=== PATIENT | female | born 1995 | race Caucasian/White ===

== ENCOUNTER 2020-05-01 18:38 | Emergency (ER) | payer OTHER ==
[~2020-05-01] VITALS: Ht 167.6 cm; Wt 76.2 kg
[2020-05-01 18:44] VITALS: BP 116/72
--- NOTE | 2020-05-01 18:48 | NUR ---
EVALUATED BY DEGRAS[employer] INST[employer]ER APPRENTICE
--- NOTE | 2020-05-01 18:56 | NUR ---
Patient discharged to home in stable condition. Written and verbal after care instructions given. Patient verbalizes understanding of instruction.
== END 2020-05-01 18:57 | disposition home or self-care (01) ==
LOC: ER 18:38
DX: S60.311A Abrasion of right thumb, initial encounter (principal); S40.812A Abrasion of left upper arm, initial encounter; S40.811A Abrasion of right upper arm, initial encounter; F41.9 Anxiety disorder, unspecified; F43.10 Post-traumatic stress disorder, unspecified; F42.9 Obsessive-compulsive disorder, unspecified; W55.03XA Scratched by cat, initial encounter; Y93.89 Activity, other specified; Y92.89 Other specified places as the place of occurrence of the external cause; Y99.8 Other external cause status